=== PATIENT | male | born 1985 | race Caucasian/White ===

== ENCOUNTER 2024-10-19 14:56 | Outpatient (AMB) | payer OTHER, SELFPAY ==
--- NOTE | 2024-10-19 15:18 | MHC.OFFVIS ---
Intake Visit Reasons: Vasectomy Consult Intake Note: New patient presents today for initial visit for vasectomy consult Urology Medication:none Blood Thinner:None Antibiotic Allergies:PCN Allergies Penicillins (PCN) Allergy (Mild, Verified 10/19/24 22:58) Unknown Medication List - Last Reconciled 10/19/24 by QUEENIE Dumont-YOJANA dextroamphetamine-amphetamine 25 mg ER 1 cap PO QAM HPI Comments Details: Alfredo is a pleasant 38-year-old male patient of Dr. Sharp. He presents to the office today for - vasectomy evaluation Vasectomy evaluation The patient presents for vasectomy consultation.? He is currently He has fathered 3 children with 2 partners The youngest child is 6 years old His partner is aware and permissive for a vasectomy Current form of control is none current partner with hysterectomy Current employment is IT The vasectomy may be complicated due to a history of no complicating issues. Patient education has been provided via AUA video, via printed information, risks of failure, recovery time, bruising and potential pain syndrome have been stressed Discussion today focused on the presence of vasectomy and the risks, benefits and alternatives that are available. Vasectomy as intended as a permanent form of control. Printed information and literature was provided to the patient. Overall there is a one in 2500 failure rate. This can occur at any time after vasectomy. Risks were discussed highlighting hematoma, spermatocele, epididymal congestion, development of sperm antibodies, and development of chronic pain estimated between 1-5%. The procedure was reviewed in detail. Anatomical diagrams of the male genitalia were used to explain the location of the vas deferens. The vas deferens will be transected, the proximal end will be cauterized, a metal clip would be applied to separate the 2 vas deferens ends. It was explained the procedure will be done in the office and takes approximately 10-15 minutes. Less common problems that arise with vasectomy include hematoma, bleeding, allergic reaction to anesthetic, epididymal infection, epididymal congestion, scrotal discomfort, spermatic leak, spermatic granuloma and the possibility of antisperm antibodies. He understands these risks and wishes to proceed. Consent was signed at the office today. He also understands that it takes 12 weeks for sperm to fully clear the system. He will need to provide a semen sample at 12 weeks and if this is not clear a 2nd sample at 16 weeks. Medical clearance to stop using protection will only be provided if he satisfies published criteria for sperm clearance. Review of Systems Const All systems reviewed & are unremarkable except as noted in HPI and below Physical Exam Const General: cooperative, comfortable, no acute distress, well developed, alert and awake Orientation/consciousness: patient oriented x3 HEENT Head: Yes normal to inspection, Yes normocephalic and Yes atraumatic Ears: hearing grossly normal bilaterally Eyes General: appearance normal, both eyes and all related structures Neck Neck: Yes normal visual inspection and Yes trachea midline Chest Chest palpation & inspection: normal inspection of the chest Resp Effort & Inspection: normal respiratory effort and able to speak in complete sentences Cardio Rate: regular rate GI Inspection: Yes normal to inspection General: Yes no CVA tenderness Back/Spine/Pelvis Back: no CVA tenderness Skin General skin exam: no rashes or lesions noted Neuro General: patient oriented x3 Extrem General: Yes normal to inspection Psych Appearance: grossly normal and well kempt Mental Status: mental status grossly normal Speech and movement: Normal speech and movement present and Clear speech present Affect: normal affect Attitude: cooperative Thought process: Normal thought process present Thought content: Normal thought content present Insight: Fair insight present (Psych) Judgement: Fair judgement present (Psych) Assessment & Plan Assessment & Plan (1) Anxiety about health: Code(s): R45.89 - Other symptoms and signs involving emotional state Category: Medical (2) Vasectomy evaluation: Code(s): Z30.09 - Encounter for other general counseling and advice on contraception Category: Medical Plan Vasectomy was discussed in detail; risks and benefits. All questions were answered. Consent was obtained. Prescriptions provided; we discussed importance of bringing medications to office day of procedure. We discussed semen analysis in office verses fellows kit; information provided. Will schedule for in office vasectomy. Follow-up per doctor's orders; or sooner with any issues, concerns, and or questions. Medications: New diazepam (Valium) Bringing medication to office day of procedure 2 mg PO DAILY 2 tabs 0RF anxiety R45.89 - Other symptoms and signs involving emotional state tramadol Bringing medication to office day of procedure 50 mg PO Q8H PRN 7 tabs 0RF pain Patient Instructions: The patient had an opportunity to ask questions regarding the treatment plan. All questions were answered. Physical exam, labs, and imaging were discussed and reviewed in detail. As well as risks, benefits, and discussion of treatment choices. No major barriers to understanding were identified. The patient expressed understanding and agreement with the above treatment plan. The patient was made aware they should contact our office by phone for worsening of their current condition, the appearance of new symptoms, or with any questions or concerns. Compliance is encouraged with any medications and follow up testing that is ordered. It is a privilege to be allowed the opportunity to participate in? your urological care.? Again, if you have any questions or concerns If you have any questions or concerns please do not hesitate to contact me. The office is [phone]. This note is constructed using voice recognition software. While every effort has been made to ensure accuracy air/ocean export clerk errors may have been included. Yours sincerely, TY Dumont Coding Level of Care Code New Pt Level 4 (30933) Diagnoses Anxiety about health R45.89 Vasectomy evaluation Z30.09
--- OUTSIDE RECORDS SUMMARY | 2024-10-19 15:19 | XMS_ITS | Clinical Summary ---
Author Organization [facility] Address [facility] [place] [address] Care Team Providers Care Edge Inker Uppers Name Role Phone Byron Bowden Primary Care Provider [phone] Allergies Active Allergy Reactions Criticality Noted Date Comments Penicillins 03/25/2021 Medications omeprazole (PriLOSEC) 20 mg Capsule, Delayed Release(E.C.) Take 20 mg by mouth daily. Active cyclobenzaprine (Flexeril) 10 mg Tablet Take 1 tablet by mouth 3 times daily as needed for Muscle spasms. 15 tablet 03/26/2021 Active polyethylene glycoL (Miralax) 17 gram Powder in Packet Take 17 g by mouth daily. 7 each 03/26/2021 Active Active Problems Problem Noted Date Diagnosed Date Splenic laceration 03/25/2021 Immunizations Immunization Administration Dates Next Due Influenza Quadrivalent, Preservative Free 2021 Tdap (Adacel, Boostrix) 03/26/2021 Social History Tobacco Use Types Packs/Day Years Used Date Smoking Tobacco: Never Assessed Sex and Gender Information Value Date Recorded Sex Assigned at Not on file Legal Sex Male 3:40 AM EST Gender Identity Not on file Sexual Orientation Not on file Last Filed Vital Signs Vital Sign Reading Time Taken Comments Blood Pressure 159/99 03/26/2021 12:05 PM EST Pulse 74 03/25/2021 8:50 PM EST Temperature 37.2 C (98.9 F) 03/26/2021 12:05 PM EST Respiratory Rate 18 03/26/2021 12:05 PM EST Oxygen Saturation 98% 03/26/2021 12:05 PM EST Inhaled Oxygen Concentration - - Weight - - Height - - Body Mass Index - - Plan of Treatment Health Maintenance Due Date Last Done Comments HIV screen 10/23/2001 Hepatitis C Screening 10/23/2001 Lipid Screening 10/23/2001 Hepatitis B vaccine (0-59 yrs) and Risk (1) 10/23/2002 Covid-19 Vaccine (1 - 2023- season) 2023 Influenza (Flu) vaccine (1 o f 1 - Influenza standard series) 11/09/2024 03/25/2021 Tetanus/Diphtheria/Pertussis Vaccines (2 - Td or Tdap) 03/26/2031 03/26/2021 Insurance [employer] Advance Directives * Attempt Cardiopulmonary Resuscitation - Inpatient (Latest Code Status on File) Date Activated Date Inactivated Comments 03/25/2021 11:44 AM 03/26/2021 5:07 PM Question Answer Comments Code Status decision made by: Patient Care Teams Edge Inker Uppers Relationship Specialty Start Date End Date Byron Bowden PA PCP - General Internal Medicine 03/30/21
--- OUTSIDE RECORDS SUMMARY | 2024-10-19 15:19 | XMS_ITS | Clinical Summary ---
Author Organization [facility] Address [address] [place] [id number] Phone Care Team Providers Care Post Manager Name Role Phone Teresa Sharp NP Primary Care Provider Allergies Active Allergy Reactions Criticality Noted Date Comments Penicillins Rash,Swelling Low 03/07/2021 Medications No known medications Active Problems No known active problems Social History Tobacco Use Types Packs/Day Years Used Date Smoking Tobacco: Never Smokeless Tobacco: Never Tobacco Cessation:Counseling Given: Not Answered Alcohol Use Standard Drinks/Week Comments Yes 0 (1 standard drink = 0.6 oz pur e alcohol) Education Answer Date Recorded Are you interested in more education? Not on mary jane e 07/07/2022 Are you concerned about learning? Not on file 07/07/2022 No 07/07/2022 No 07/07/2022 Digital Access Answer Date Recorded No 08/05/2022 No 08/05/2022 No 08/05/2022 Reliable internet access at home? Not on file 08/05/2022 Device with a working camera? Not on file Sex and Gender Information Value Date Recorded Sex Assigned at Not on file Legal Sex Male 8:58 AM EST Gender Identity Not on file Sexual Orientation Not on file Last Filed Vital Signs Vital Sign Reading Time Taken Comments Blood Pressure 146/78 05/05/2022 9:18 AM EST Pulse 85 05/05/2022 9:18 AM EST Temperature 36.8 C (98.2 F) 05/05/2022 9:18 AM EST Respiratory Rate - - Oxygen Saturation 97% 05/05/2022 9:18 AM EST Inhaled Oxygen Concentration - - Weight 106.6 kg (235 lb) 05/05/2022 9:18 AM EST Height - - Body Mass Index - - Plan of Treatment Health Maintenance Due Date Last Done Comments LIPID PANEL 1983 DEPRESSION SCREENING 1995 HEPATITIS C SCREENING 10/23/2001 HIV ONE-TIME SCREENING (18-6 5 YEARS) 10/23/2001 COVID-19 VACCINE (2023-2 5 season) 2023 05/09/2020, 04/11/2020 Adult Td,Tdap Booster 03/26/2031 03/26/2021 , 05/11/2016 SMOKING STATUS SCREENING (On ce After 26 Yrs) Completed 05/05/2022 HEPATITIS A VACCINES Aged Out No long er eligible based on patient's age to complete this topic HIB VACCINES Aged Out No longer eligi ble based on patient's age to complete this topic MENINGOCOCCAL VACCINES (ACWY) Aged Out No longer eligible based on patient's age to complete this topic MENINGOCOCCAL VACCINES (B) Aged Out N o longer eligible based on patient's age to complete this topic PNEUMOCOCCAL VACCINES (0-49 years) Aged Out No longer eligible b ased on patient's age to complete this topic Medical Devices Not on file Insurance [address] [place], [place] [id number] [place], [place] [id number] [facility] [employer] Care Teams Post Manager Relationship Specialty Start Date End Date Teresa Sharp NP [address] [place] [address] PCP - General Nurse Practitioner 05/05/22 Additional Source Comments The information contained in this document represents components of the legal health record. It is not the complete legal health record.[facility]
== END 2024-10-19 15:58 | disposition home or self-care (01) ==
LOC: HO.HUSH 14:57
PROVIDERS: PCP Registered Nurse; Visit Provider Nurse Practitioner Family
DX: R45.89 Other symptoms and signs involving emotional state (principal); Z30.09 Encounter for other general counseling and advice on contraception
CPT/HCPCS: 99204